=== PATIENT | female | born 1995 | race Caucasian/White ===

== ENCOUNTER 2017-04-20 10:24 | Emergency (ER) | payer OTHER ==
[~2017-04-20] VITALS: Ht 157.5 cm; Wt 41.5 kg
[2017-04-20 10:33] VITALS: BP 112/63
[2017-04-20] MEDS ORDERED: ONDANSETRON 4 MG ODT PO ONE (10:40)
--- NOTE | 2017-04-20 10:55 | NUR ---
Pt in bed 8
--- NOTE | 2017-04-20 11:02 | NUR ---
PATIENT PRESENTS TO ED WITH SUPRAPUBIC PAIN WITH DISCHARGE--N/V/D . PT STATES SKIN IS PINK/WARM/DRY; AAOX4 WITH EVEN AND STEADY GAIT; LUNGS CLEAR BL; HR EVEN AND REGULAR; PT DENIES ANY FEVER, CP, SOB, OR COUGH AT THIS TIME; PATIENT STATES PAIN OF 7/10 AT THIS TIME; VSS; PATIENT POSITIONED FOR COMFORT; HOB ELEVATED; BEDRAILS UP X2; BED DOWN. ER MD MADE AWARE OF PT STATUS.
--- NOTE | 2017-04-20 11:02 | NUR ---
Lab at bedside for blood draw.
[2017-04-20 11:17] LABS: BASOPHILS # (AUTO) 0.2 K/uL (0.00-0.22); BASOPHILS % (AUTO) 4.1 % (0.0-2.0); EOSINOPHILS # (AUTO) 0.1 K/uL (0-0.4); EOSINOPHILS % (AUTO) 1.7 % (0.0-4.0); HEMATOCRIT 39.1 % (36-48); HEMOGLOBIN 13.1 g/dL (12.0-16.0); LYMPHOCYTES # (AUTO) 1.3 K/uL (2.5-16.5); LYMPHOCYTES % (AUTO) 29.1 % (20.5-51.1); MEAN CORPUSCULAR HEMOGLOBIN 32 pg (27-31); MEAN CORPUSCULAR HGB CONC 33 g/dL (33-37); MEAN CORPUSCULAR VOLUME 96 fL (80-94); MONOCYTES # (AUTO) 0.4 K/uL (0.8-1.0); MONOCYTES % (AUTO) 8.7 % (1.7-9.3); NEUTROPHILS # (AUTO) 2.5 K/uL (1.8-7.7); NEUTROPHILS % (AUTO) 56.4 % (42.2-75.2); PLATELET COUNT (AUTO) 242 K/uL (140-450); RED CELL DISTRIBUTION WIDTH 12.4 % (11.6-13.7); WHITE BLOOD COUNT (AUTO) 4.5 K/uL (4.5-11.0)
[2017-04-20 11:21] LABS: ANION GAP 11.2 (8-16); CALCIUM 8.7 mg/dL (8.5-10.1); CREATININE 0.7 mg/dL (0.6-1.3); POTASSIUM 4.2 mmol/L (3.5-5.1)
[2017-04-20 11:27] LABS: TOTAL BILIRUBIN 0.2 mg/dL (0.0-1.0); TOTAL PROTEIN, SERUM 8.1 g/dL (6.4-8.2)
--- NOTE | 2017-04-20 11:47 | NUR ---
Patient being evaluated by physician at bedside.
[2017-04-20] MEDS ORDERED: KETOROLAC 30 MG/ML VIAL IVP ONE (11:55)
[2017-04-20 12:55] LABS: BILIRUBIN,URINE NEGATIVE (NEGATIVE); BLOOD, URINE 3+ (NEGATIVE); COLOR,URINE YELLOW (YELLOW); LEUKOCYTE ESTERASE ,URINE NEGATIVE (NEGATIVE); NITRITE, URINE NEGATIVE (NEGATIVE); PH,URINE 5.5 (5.0-9.0); PROTEIN,URINE NEGATIVE (NEGATIVE); UGLUCOSE NEGATIVE (NEGATIVE); UROBILINOGEN,URINE 0.2 EU/dL (0.2 - 1)
[2017-04-20 13:23] LABS: APPEARANCE,URINE HAZY (CLEAR)
[2017-04-20 13:32] LABS: BACTERIA,URINE 1+ /HPF (None Seen); MUCUS,URINE 2+ /LPF (None Seen); WBC,URINE 0-5 /HPF (0-5)
--- NOTE | 2017-04-20 13:40 | NUR ---
Pelvic exam performed by Dr. Gonzalez with myself at bedside for entire examination. Patient tolerated procedure well. Specimens obtained and sent to lab. Patient assisted to position of comfort after examination.
--- NOTE | 2017-04-20 13:46 | NUR ---
Ultrasound at bedside.
--- NOTE | 2017-04-20 14:28 | NUR ---
Pt placed in overflow chair. Mother at bedside.
--- NOTE | 2017-04-20 15:20 | NUR ---
IV removed, catheter intact and site benign. Applied folded 4x4 gauze and tape to stop bleeding.
[2017-04-20 15:28] VITALS: BP 102/61
--- NOTE | 2017-04-20 15:29 | NUR ---
Patient discharged with v/s stable. Written and verbal after care instructions given and explained. Patient alert, oriented and verbalized understanding of instructions. Ambulatory with steady gait. All questions addressed prior to discharge. ID band removed. Patient advised to follow up with PMD. Rx of NORCO AND ZOFRAN given. Patient educated on indication of medication including possible reaction and side effects. Opportunity to ask questions provided and answered.
== END 2017-04-20 15:29 | disposition home or self-care (01) ==
LOC: MED 10:24
DX: N83.202 Unspecified ovarian cyst, left side (principal)
CPT/HCPCS: 36415; 76830; 76856; 80053; 81001; 82150; 83690; 84703; 85025; 87086; 87210; 96374; 99285; J1885; Q0092; S0119

== ENCOUNTER 2017-06-27 19:17 | Emergency (ER) | payer MEDICAID, OTHER ==
[~2017-06-27] VITALS: Ht 154.9 cm; Wt 45.0 kg
[2017-06-27 19:57] VITALS: BP 131/79
--- NOTE | 2017-06-27 20:39 | NUR ---
TO ER [id number]
[2017-06-27 21:25] VITALS: BP 124/63
--- NOTE | 2017-06-27 21:25 | NUR ---
Patient discharged with v/s stable. Written and verbal after care instructions given and explained. Patient alert, oriented and verbalized understanding of instructions. Ambulatory with steady gait. All questions addressed prior to discharge. ID band removed. Patient advised to follow up with PMD. Rx of Motrin and [place] given. Patient educated on indication of medication including possible reaction and side effects. Opportunity to ask questions provided and answered.
== END 2017-06-27 21:25 | disposition home or self-care (01) ==
LOC: MED 19:17
DX: M54.2 Cervicalgia (principal)
CPT/HCPCS: 72040; 99284

== ENCOUNTER 2017-12-26 03:40 | Emergency (ER) | payer MEDICAID, OTHER ==
[~2017-12-26] VITALS: Ht 154.9 cm; Wt 48.1 kg
--- NOTE | 2017-12-26 03:40 | NUR ---
PATIENT BIB [facility] TO ER BED 11.
[2017-12-26 03:42] VITALS: BP 129/86
--- NOTE | 2017-12-26 03:50 | NUR ---
PT BIB AMBULANCE C/O RIGHT FLANK PAIN 06/08 STARTED TODAY. PT STATED THAT SHE TOOK TYLENOL 650MG AND DAYQUIL ABOUT ONE HR AGO. RR EVEN AND UNLABORED. C/O NAUSEA. HX OF OVARIAN CYST. S1 ANS S2 HEARD. CAP REFILL WITHIN 3 SEC. MOTHER AT BED SIDE. ER MD, DR. ARCHIBALD MADE AWARE.
[2017-12-26] MEDS ORDERED: ONDANSETRON 4 MG ODT PO ONE (04:00)
[2017-12-26] MEDS ORDERED: KETOROLAC 60 MG/2 ML VIAL IM ONE (04:00)
[2017-12-26 04:06] LABS: APPEARANCE,URINE SL CLOUDY (CLEAR); BILIRUBIN,URINE NEGATIVE (NEGATIVE); BLOOD, URINE 2+ (NEGATIVE); COLOR,URINE YELLOW (YELLOW); LEUKOCYTE ESTERASE ,URINE TRACE (NEGATIVE); NITRITE, URINE NEGATIVE (NEGATIVE); UGLUCOSE NEGATIVE (NEGATIVE)
--- NOTE | 2017-12-26 04:13 | NUR ---
MEDICATIONS ADMINISTERED ORDERED. TOLERATED WELL.
[2017-12-26 04:18] LABS: RBC,URINE 11-20 (MOD) /HPF (0-5)
[2017-12-26] MEDS ORDERED: cefTRIAXone 1,000 MG in LIDOCAINE MPF 1% - **ER/OR** 2.1 ML IM ONE (04:35)
--- NOTE | 2017-12-26 04:41 | NUR ---
PT IS BEING TAKEN TO CT VIA WC.
--- NOTE | 2017-12-26 05:05 | NUR ---
PT CAME BACK FROM CT WITH STABLE CONDITION. IM ABX ADMINISTERED ORDERED. TOLERATED WELL.
[2017-12-26 05:38] VITALS: BP 94/60
--- NOTE | 2017-12-26 05:38 | NUR ---
Patient discharged with v/s stable. Written and verbal after care instructions given and explained. Patient alert, oriented and verbalized understanding of instructions. Ambulatory with steady gait. All questions addressed prior to discharge. ID band removed. Patient advised to follow up with PMD. Rx of PYRIDIRUM, MIRALAX POWDER, MACROBID, MOTRIN given. Patient educated on indication of medication including possible reaction and side effects. Opportunity to ask questions provided and answered.
== END 2017-12-26 05:38 | disposition home or self-care (01) ==
LOC: MED 03:40
DX: N39.0 Urinary tract infection, site not specified (principal); K59.00 Constipation, unspecified; R03.0 Elevated blood-pressure reading, without diagnosis of hypertension
CPT/HCPCS: 74176; 81001; 87086; 96372; 99285; J0696; J1885; J2001; S0119; 81025

== ENCOUNTER 2018-12-08 19:07 | Emergency (ER) | payer OTHER ==
[~2018-12-08] VITALS: Ht 154.9 cm; Wt 45.1 kg
[2018-12-08 19:12] VITALS: BP 117/67
--- NOTE | 2018-12-08 19:17 | NUR ---
TO BED # 6 AMBULATORY
--- NOTE | 2018-12-08 19:20 | NUR ---
ASSUMED CARE OF PT AT THIS TIME. C/O POSSIBLE SZ WITNESSED BY PARENT, PT C/O CP WELL. NO SOB NOTED. PT IS A&OX4 AND ANSWERS ALL QUESTIONS APPROPRIATELY. PT DENIES ANY OTHER NEURO COMPLAINTS. AAOX4 WITH EVEN AND STEADY GAIT; PATIENT STATES PAIN OF 6/10; VSS; PATIENT POSITIONED FOR COMFORT; HOB ELEVATED; BEDRAILS UP X2; BED DOWN. ER MD MADE AWARE OF PT STATUS. WILL CONTINUE TO MONITOR.
--- NOTE | 2018-12-08 20:48 | NUR ---
Dr. Oneal evaluating patient at bedside.
[2018-12-08] MEDS ORDERED: KETOROLAC 60 MG/2 ML VIAL IM ONE (20:55)
[2018-12-08 21:45] VITALS: BP 117/67
--- NOTE | 2018-12-08 21:45 | NUR ---
Patient discharged with v/s stable. Written and verbal after care instructions given and explained. Patient alert, oriented and verbalized understanding of instructions. Ambulatory with steady gait. All questions addressed prior to discharge. ID band removed. Patient advised to follow up with PMD. Rx of MOTRIN AND NORCO given. Patient educated on indication of medication including possible reaction and side effects. Opportunity to ask questions provided and answered.
== END 2018-12-08 21:45 | disposition home or self-care (01) ==
LOC: MED 19:07
DX: R51 Headache (principal); M54.2 Cervicalgia; R56.9 Unspecified convulsions; R07.9 Chest pain, unspecified
CPT/HCPCS: 81002; 81025; 96372; 99283; J1885; 93005

== ENCOUNTER 2019-03-06 21:02 | Emergency (ER) | payer OTHER ==
[~2019-03-06] VITALS: Ht 147.3 cm; Wt 48.1 kg
[2019-03-06 21:26] VITALS: BP 118/68
--- NOTE | 2019-03-06 21:33 | NUR ---
PT AMBULATED TO THE RESTROOM AND GAVE U/A SPECIMEN
--- NOTE | 2019-03-06 21:34 | NUR ---
PT AMBULATED TO BED #11
--- NOTE | 2019-03-06 21:47 | NUR ---
Dr. Scott evaluating patient at bedside.
[2019-03-06] MEDS ORDERED: ONDANSETRON 4 MG/2 ML VIAL IVP ONE (21:50)
[2019-03-06] MEDS ORDERED: NACL 0.9% 1,000 ML IV ONE (21:50)
--- NOTE | 2019-03-06 21:52 | NUR ---
X-Ray at bedside.
[2019-03-06 22:14] LABS: BASOPHILS % (AUTO) 0.6 % (0.0-2.0); EOSINOPHILS # (AUTO) 0.1 K/uL (0-0.4); EOSINOPHILS % (AUTO) 1.4 % (0.0-4.0); HEMATOCRIT 38.8 % (36-48); HEMOGLOBIN 13.2 g/dL (12.0-16.0); LYMPHOCYTES # (AUTO) 2.8 K/uL (2.5-16.5); LYMPHOCYTES % (AUTO) 40.4 % (20.5-51.1); MEAN CORPUSCULAR HEMOGLOBIN 33 pg (27-31); MEAN CORPUSCULAR HGB CONC 34 g/dL (33-37); MEAN CORPUSCULAR VOLUME 96.3 fL (80-94); MONOCYTES # (AUTO) 0.5 K/uL (0.8-1.0); MONOCYTES % (AUTO) 6.7 % (1.7-9.3); NEUTROPHILS # (AUTO) 3.5 K/uL (1.8-7.7); NEUTROPHILS % (AUTO) 50.9 % (42.2-75.2); PLATELET COUNT (AUTO) 267 K/uL (140-450); RED BLOOD CELL COUNT(AUTO) 4.03 MIL/uL (4.20-5.40); RED CELL DISTRIBUTION WIDTH 13.3 % (11.6-13.7); WHITE BLOOD COUNT (AUTO) 6.9 K/uL (4.8-10.8)
[2019-03-06 22:16] LABS: BILIRUBIN,URINE NEGATIVE (NEGATIVE); BLOOD, URINE TRACE-I (NEGATIVE); COLOR,URINE YELLOW (YELLOW); LEUKOCYTE ESTERASE ,URINE TRACE (NEGATIVE); NITRITE, URINE NEGATIVE (NEGATIVE); PH,URINE 5.5 (5.0-9.0); UGLUCOSE NEGATIVE (NEGATIVE)
[2019-03-06 22:24] LABS: APPEARANCE,URINE HAZY (CLEAR)
[2019-03-06 22:25] LABS: RBC,URINE 0-5 /HPF (0-5); WBC,URINE 0-5 /HPF (0-5)
[2019-03-06] MEDS ORDERED: CIPROFLOXACIN 250 MG TAB PO ONE (22:50)
[2019-03-06 22:53] LABS: CARBON DIOXIDE 27.7 mmol/L (21-32); POTASSIUM 3.7 mmol/L (3.5-5.1)
[2019-03-06 22:54] LABS: ALBUMIN 3.9 g/dL (3.4-5.0); CREATININE 0.5 mg/dL (0.6-1.3); TOTAL BILIRUBIN 0.2 mg/dL (0.0-1.0)
[2019-03-06 23:40] VITALS: BP 115/66
--- NOTE | 2019-03-06 23:40 | NUR ---
DISCHARGE PAPERS GIVEN TO PT. 12/09 SUPRAPUBIC PAIN BUT TOLLERABLE. VSS. RX OF CIPRO GIVEN. SIDE EFFECTS EXLPAINED. INSTRUCTED TO F/U WITH PCP AND WHEN TO RETURN TO ER. PT VERBALLIZED UNDERSTANDING OF DC INSTRUCTIONS. ALL QUESTIONS ANSWERED.
== END 2019-03-06 23:40 | disposition home or self-care (01) ==
LOC: MED 21:02
DX: N39.0 Urinary tract infection, site not specified (principal); R07.9 Chest pain, unspecified; R42 Dizziness and giddiness
CPT/HCPCS: 36415; 71045; 80053; 81001; 85025; 96361; 96374; 99284; J2405; J7030; Q0092

== ENCOUNTER 2019-04-15 03:12 | Emergency (ER) | payer OTHER ==
[~2019-04-15] VITALS: Ht 154.9 cm; Wt 49.9 kg
[2019-04-15 03:12] VITALS: BP 115/62
--- NOTE | 2019-04-15 03:12 | NUR ---
Doris palma in [facility] - 04/15/19 at 0319 by JEREMY PT TAKEN TO BED 11
--- NOTE | 2019-04-15 03:15 | NUR ---
Doris palma in [facility], [place] - 04/15/19 at 0319 by FADIA TO BED # 11 AMBULATORY
--- NOTE | 2019-04-15 03:15 | NUR ---
23/F PRESENTS WITH FAMILY/FRIEND, C/O LOWER ABD PAIN, INTERMITTENT N/V/D X3 DAYS. PT DENIES FEVER OR DYSURIA. AOX4, GCS 15, SKIN NORMAL WARM AND DRY, RR EVEN AND UNLABORED. BS ACTIVE X4, ABD SOFT FLAT TENDER TO UPPER ABD. HX ENDOMETRIOSIS OTC MOTRIN WITHOUT RELIEF
[2019-04-15] MEDS ORDERED: NACL 0.9% 500 ML IV ONE (03:26)
[2019-04-15] MEDS ORDERED: KETOROLAC 30 MG/ML VIAL IVP ONE (03:30)
[2019-04-15] MEDS ORDERED: ONDANSETRON 4 MG/2 ML VIAL IVP ONE (03:30)
--- NOTE | 2019-04-15 03:30 | NUR ---
DR ARCHIBALD AT BEDSIDE
[2019-04-15 03:43] LABS: HEMOGLOBIN 12.1 g/dL (12.0-16.0); MEAN CORPUSCULAR HEMOGLOBIN 33 pg (27-31); MEAN CORPUSCULAR HGB CONC 34 g/dL (33-37); WHITE BLOOD COUNT (AUTO) 6.5 K/uL (4.8-10.8)
[2019-04-15 03:49] LABS: BASOPHILS % (AUTO) 0.6 % (0.0-2.0); EOSINOPHILS # (AUTO) 0.2 K/uL (0-0.4); EOSINOPHILS % (AUTO) 3.3 % (0.0-4.0); HEMATOCRIT 35.8 % (36-48); LYMPHOCYTES # (AUTO) 2.2 K/uL (2.5-16.5); LYMPHOCYTES % (AUTO) 34.6 % (20.5-51.1); MEAN CORPUSCULAR VOLUME 97.2 fL (80-94); MONOCYTES # (AUTO) 0.7 K/uL (0.8-1.0); MONOCYTES % (AUTO) 10.8 % (1.7-9.3); NEUTROPHILS # (AUTO) 3.3 K/uL (1.8-7.7); NEUTROPHILS % (AUTO) 50.7 % (42.2-75.2); PLATELET COUNT (AUTO) 248 K/uL (140-450); RED BLOOD CELL COUNT(AUTO) 3.68 MIL/uL (4.20-5.40); RED CELL DISTRIBUTION WIDTH 13.1 % (11.6-13.7)
[2019-04-15 03:52] LABS: ANION GAP 12.5 (8-16); CARBON DIOXIDE 27.6 mmol/L (21-32); CREATININE 0.8 mg/dL (0.6-1.3); POTASSIUM 4.1 mmol/L (3.5-5.1)
[2019-04-15 03:57] LABS: ALBUMIN 3.7 g/dL (3.4-5.0); TOTAL BILIRUBIN 0.2 mg/dL (0.0-1.0)
--- NOTE | 2019-04-15 04:19 | NUR ---
PT RETURN FROM XRAY
--- NOTE | 2019-04-15 05:00 | NUR ---
DR ARCHIBALD AT BEDSIDE
[2019-04-15 05:08] VITALS: BP 111/68
--- NOTE | 2019-04-15 05:08 | NUR ---
Patient discharged with v/s stable. Written and verbal after care instructions given and explained. Patient alert, oriented and verbalized understanding of instructions. Ambulatory with steady gait. All questions addressed prior to discharge. ID band removed. Patient advised to follow up with PMD. Rx of ZOFRAN ODT, MOTRIN given. Patient educated on indication of medication including possible reaction and side effects. Opportunity to ask questions provided and answered.
== END 2019-04-15 05:08 | disposition home or self-care (01) ==
LOC: MED 03:12
DX: K52.9 Noninfective gastroenteritis and colitis, unspecified (principal)
CPT/HCPCS: 36415; 74022; 80053; 81025; 85025; 96361; 96374; 96375; 99284; J1885; J2405; J7030

== ENCOUNTER 2021-11-01 17:04 | Emergency (ER) | payer OTHER ==
--- NOTE | 2021-11-01 18:24 | NUR ---
CALLED IN LOBBY AND OUTSIDE. NO RESPONSE.
--- NOTE | 2021-11-01 18:36 | NUR ---
CALLED IN LOBBY AND OUTSIDE. NO RESPONSE.
== END 2021-11-01 18:24 | disposition left against medical advice (07) ==
LOC: MED 17:04
DX: Z53.21 Procedure and treatment not carried out due to patient leaving prior to being seen by health care provider (principal)

== ENCOUNTER 2024-08-29 14:22 | Emergency (ER) | payer OTHER ==
[~2024-08-29] VITALS: Ht 154.9 cm; Wt 57.8 kg
[2024-08-29 14:25] VITALS: BP 116/47; PULSE 88; RESP 16; TEMP 98.2; O2SAT 96
[2024-08-29 15:16] LABS: APPEARANCE,URINE SLIGHTLY CLOUDY (CLEAR); BILIRUBIN,URINE NEGATIVE (NEGATIVE); BLOOD, URINE 1+ (NEGATIVE); COLOR,URINE YELLOW (YELLOW); LEUKOCYTE ESTERASE ,URINE NEGATIVE (NEGATIVE); NITRITE, URINE NEGATIVE (NEGATIVE); PROTEIN,URINE NEGATIVE (NEGATIVE); UGLUCOSE NEGATIVE (NEGATIVE); UROBILINOGEN,URINE 0.2 EU/dL (0.2 - 1)
[2024-08-29 15:23] LABS: BACTERIA,URINE FEW /HPF (None Seen); SQUAMOUS EPITHELIAL CELL,UR 0-3 (FEW) /LPF (0-3 (FEW)); WBC,URINE 0-5 /HPF (0-5)
[2024-08-29 16:10] LABS: BASOPHILS % (AUTO) 0.4 % (0.0-2.0); EOSINOPHILS # (AUTO) 0.2 K/uL (0-0.4); EOSINOPHILS % (AUTO) 1.6 % (0.0-4.0); HEMOGLOBIN 13.5 g/dL (12.0-16.0); LYMPHOCYTES # (AUTO) 1.3 K/uL (2.5-16.5); LYMPHOCYTES % (AUTO) 12.7 % (20.5-51.1); MEAN CORPUSCULAR HEMOGLOBIN 33 pg (27-31); MEAN CORPUSCULAR HGB CONC 34 g/dL (33-37); MONOCYTES # (AUTO) 0.5 K/uL (0.8-1.0); MONOCYTES % (AUTO) 5.3 % (1.7-9.3); NEUTROPHILS # (AUTO) 8.1 K/uL (1.8-7.7); PLATELET COUNT (AUTO) 262 K/uL (140-450); RED BLOOD CELL COUNT(AUTO) 4.17 MIL/uL (4.20-5.40); RED CELL DISTRIBUTION WIDTH 13.4 % (11.6-13.7); WHITE BLOOD COUNT (AUTO) 10.2 K/uL (4.8-10.8)
[2024-08-29 16:34] LABS: ANION GAP 11.7 (8-16); CARBON DIOXIDE 28.5 mmol/L (21-32); CREATININE 0.8 mg/dL (0.6-1.3); POTASSIUM 4.2 mmol/L (3.5-5.1)
[2024-08-29 16:41] LABS: ALBUMIN 3.9 g/dL (3.4-5.0); BILIRUBIN,DIRECT 0.1 mg/dL (0.0-0.3); TOTAL BILIRUBIN 0.3 mg/dL (0.0-1.0); TOTAL PROTEIN, SERUM 7.4 g/dL (6.4-8.2)
[2024-08-29] MEDS ORDERED: DICYCLOMINE HCL LIQUID 10 MG/5 ML UDC ONE (17:09)
[2024-08-29] MEDS ORDERED: ALUMINUM HYD/MAG/SIMETHICONE 30 ML UDC ONE (17:09)
[2024-08-29] MEDS: DICYCLOMINE HCL LIQUID 20 MG, ALUMINUM HYD/MAG/SIMETHICONE 30 ML, LIDOCAINE VISCOUS 2% ... PO ONE (17:11)
[2024-08-29] MEDS: ONDANSETRON 4 MG ODT PO ONE (17:12)
[2024-08-29] MEDS ORDERED: ONDA-188 SL (17:27)
[2024-08-29] MEDS ORDERED: ACET500T99 PO (17:27)
[2024-08-29] MEDS ORDERED: LOPE1TAB14 PO (17:27)
[2024-08-29 18:14] VITALS: BP 98/60; PULSE 72; RESP 16; TEMP 98; O2SAT 99
== END 2024-08-29 18:16 | disposition home or self-care (01) ==
LOC: MED 14:22
DX: K29.70 Gastritis, unspecified, without bleeding (principal); A05.9 Bacterial foodborne intoxication, unspecified; Z86.69 Personal history of other diseases of the nervous system and sense organs; Z79.899 Other long term (current) drug therapy
CPT/HCPCS: 36415; 80048; 80076; 81001; 81025; 83690; 85025; 99284; Q0162